=== PATIENT | male | born 1975 | race Caucasian/White ===

== ENCOUNTER 2019-06-20 15:38 | Emergency (ER) | payer BC ==
[~2019-06-20] VITALS: Ht 177.8 cm; Wt 81.6 kg
--- NOTE | 2019-06-20 15:38 | NUR ---
EFRAÍN HAZEL ALS AND PLACED IN BED 2.
[2019-06-20 15:46] VITALS: BP 113/73
--- NOTE | 2019-06-20 15:46 | NUR ---
PT BIBA C/O SEIZURE. PER EMS PT HAD WITNESSED SEIZURE LASTING 1 MIN. NO ORAL TRAUMA, NO HEAD INJURY, AAOX4, DENIES PAIN AT THIS TIME. REPORTS HASN'T TAKEN KEPPRA IN OVER 1 WEEK, ADMITS TO MARIJUANA USE. VSS. ER MD TO SEE PT. MEDHX:SEIZURE, SUBSTANCE ABUSE, BRAIN SURGERY RX:KEPPRA, SUBOXONE
[2019-06-20] MEDS ORDERED: LORazepam 1 MG TAB PO ONE (16:20)
[2019-06-20] MEDS ORDERED: levETIRAcetam 500 MG TAB PO ONE (16:20)
--- NOTE | 2019-06-20 16:38 | NUR ---
LAB AT BEDSIDE
--- NOTE | 2019-06-20 17:01 | NUR ---
PT SLEEPING IN BED, AROUSABLE TO NAME, AAOX4, GCS 15. VSS. PT DENIES PAIN AT THIS TIME.
[2019-06-20 17:02] LABS: BASOPHILS # (AUTO) 0.1 K/uL (0.00-0.22); BASOPHILS % (AUTO) 0.7 % (0.0-2.0); EOSINOPHILS # (AUTO) 0.2 K/uL (0-0.4); EOSINOPHILS % (AUTO) 2.8 % (0.0-4.0); HEMATOCRIT 44.6 % (36-52); HEMOGLOBIN 14.6 g/dL (12.0-18.0); LYMPHOCYTES # (AUTO) 0.9 K/uL (2.0-11.5); LYMPHOCYTES % (AUTO) 10.7 % (20.5-51.1); MEAN CORPUSCULAR HEMOGLOBIN 27 pg (27-31); MEAN CORPUSCULAR HGB CONC 33 g/dL (33-37); MEAN CORPUSCULAR VOLUME 83.3 fL (80-94); MONOCYTES # (AUTO) 0.6 K/uL (0.8-1.0); MONOCYTES % (AUTO) 6.8 % (1.7-9.3); NEUTROPHILS # (AUTO) 6.7 K/uL (1.8-7.7); PLATELET COUNT (AUTO) 285 K/uL (140-450); RED BLOOD CELL COUNT(AUTO) 5.36 MIL/uL (4.20-6.10); WHITE BLOOD COUNT (AUTO) 8.5 K/uL (4.8-10.8)
[2019-06-20 17:17] LABS: ANION GAP 12.5 (8-16); CARBON DIOXIDE 28.2 mmol/L (21-32); CREATININE 0.9 mg/dL (0.7-1.3); POTASSIUM 3.7 mmol/L (3.5-5.1)
[2019-06-20 17:21] LABS: ALBUMIN 2.9 g/dL (3.4-5.0); TOTAL BILIRUBIN 0.3 mg/dL (0.0-1.0)
[2019-06-20 18:02] VITALS: BP 112/67
--- NOTE | 2019-06-20 18:02 | NUR ---
DCR Patient discharged with v/s stable. Written and verbal after care instructions given and explained. Patient alert, oriented and verbalized understanding of instructions. Ambulatory with steady gait. All questions addressed prior to discharge. ID band removed. Patient advised to follow up with PMD. Rx of KEPPRA given. Patient educated on indication of medication including possible reaction and side effects. Opportunity to ask questions provided and answered.
== END 2019-06-20 18:02 | disposition home or self-care (01) ==
LOC: MED 15:38
DX: R56.9 Unspecified convulsions (principal); S81.802A Unspecified open wound, left lower leg, initial encounter; S81.801A Unspecified open wound, right lower leg, initial encounter; F17.210 Nicotine dependence, cigarettes, uncomplicated; Z98.890 Other specified postprocedural states; Z88.1 Allergy status to other antibiotic agents; X58.XXXA Exposure to other specified factors, initial encounter; Y92.89 Other specified places as the place of occurrence of the external cause; Y93.89 Activity, other specified; Y99.8 Other external cause status
CPT/HCPCS: 36415; 80053; 82948; 85025; 99283

== ENCOUNTER 2022-07-22 08:19 | Emergency (ER) | payer BC ==
[~2022-07-22] VITALS: Ht 180.3 cm; Wt 80.4 kg
[2022-07-22 08:23] VITALS: BP 140/93
--- NOTE | 2022-07-22 08:29 | NUR ---
BIB SELF FOR Medication Refill: KEPPRA 100MG X TWICE DAILY. PMH: SEIZURE
[2022-07-22] MEDS ORDERED: LEVE500T9 PO (10:18)
[2022-07-22 10:33] VITALS: BP 152/87
--- NOTE | 2022-07-22 10:33 | NUR ---
Patient discharged with v/s stable. Written and verbal after care instructions given. Patient alert, oriented and verbalized understanding of instructions. Ambulatory with steady gait. All questions addressed prior to discharge. ID band removed. Patient advised to follow up with PMD. Rx of Bubba given. Opportunity to ask questions provided and answered.
--- NOTE | 2022-07-22 10:34 | NUR ---
The patient's care was reviewed and supervised by Liza Conde RN.
== END 2022-07-22 10:33 | disposition home or self-care (01) ==
LOC: MED 08:19
DX: R56.9 Unspecified convulsions (principal); F17.200 Nicotine dependence, unspecified, uncomplicated
CPT/HCPCS: 99281

== ENCOUNTER 2022-08-11 00:44 | Inpatient (IN) | payer BC ==
[~2022-08-11] VITALS: Ht 182.9 cm; Wt 77.1 kg
[~2022-08-11 00:44] MED LIST: LEVE500T9 PO
[2022-08-11 00:50] VITALS: BP 145/95
--- NOTE | 2022-08-11 00:58 | NUR ---
PT TAKEN TO BED 8
--- NOTE | 2022-08-11 01:03 | NUR ---
46 YO M BIB SELF WITH C/C OF 7/10 LEFT LEG PAIN X SATURDAY. PT'S LEG IS SWOLLEN FROM FOOT TO KNEE. +3 PITTING EDEMA. +REDNESS. PT STATES IT APPEARS IF HE USED IV DRUGS, LIKE HE HAS IN PAST. PT DENIES USING IV DRUGS RECENTLY, HAS BEEN CLEAN FOR 5YRS. HX:SEIZURE, HEP C, RX:SUBOXONE ALLERGY:CEFUROXIME
--- NOTE | 2022-08-11 01:04 | NUR ---
Dr. Gonzalez examining patient.
[2022-08-11] MEDS ORDERED: CLINDAMYCIN 900MG/D5W PM 50 ML IV ONE (01:10)
[2022-08-11] MEDS ORDERED: VANCOMYCIN PER PHARMACY MC PRN ×2 (01:10→04:55)
[2022-08-11] MEDS ORDERED: VANCOMYCIN 1GM/DEXT 5% PREMIX 200 ML IV ONE (01:10)
[2022-08-11] MEDS ORDERED: PIPERACILLIN/TAZOBACTAM 4.5 GM in DEXTROSE 5% 100 ML IV ONE (01:10)
--- NOTE | 2022-08-11 01:16 | NUR ---
X-Ray at bedside.
--- NOTE | 2022-08-11 01:18 | NUR ---
LAB AT BEDSIDE
[2022-08-11] MEDS ORDERED: NACL 0.9% 2,000 ML IV ONE (01:20)
[2022-08-11] MEDS ORDERED: KETOROLAC 15 MG/ML VIAL IVP ONE (01:25)
[2022-08-11] MEDS ORDERED: PIPERACILLIN/TAZOBACTAM 4.5 GM VIAL IV ONE (01:31)
[2022-08-11 01:50] LABS: BASOPHILS % (AUTO) 0.2 % (0.0-2.0); EOSINOPHILS # (AUTO) 0.1 K/uL (0-0.4); EOSINOPHILS % (AUTO) 0.8 % (0.0-4.0); HEMATOCRIT 43.5 % (36-52); HEMOGLOBIN 14.1 g/dL (12.0-18.0); LYMPHOCYTES # (AUTO) 1.5 K/uL (2.0-11.5); LYMPHOCYTES % (AUTO) 10.9 % (20.5-51.1); MEAN CORPUSCULAR HEMOGLOBIN 25 pg (27-31); MEAN CORPUSCULAR HGB CONC 32 g/dL (33-37); MEAN CORPUSCULAR VOLUME 77.2 fL (80-94); MONOCYTES % (AUTO) 13.9 % (1.7-9.3); NEUTROPHILS # (AUTO) 10.5 K/uL (1.8-7.7); NEUTROPHILS % (AUTO) 74.2 % (42.2-75.2); PLATELET COUNT (AUTO) 315 K/uL (140-450); RED BLOOD CELL COUNT(AUTO) 5.64 MIL/uL (4.20-6.10); RED CELL DISTRIBUTION WIDTH 18.9 % (11.6-13.7); WHITE BLOOD COUNT (AUTO) 14.1 K/uL (4.8-10.8)
--- NOTE | 2022-08-11 01:55 | NUR ---
PT UNABLE TO URINATE AT THIS TIME, STATES TO GIVE HIM SOME TIME AND HE WILL GIVE URINE
[2022-08-11 02:08] LABS: ALBUMIN 2.5 g/dL (3.4-5.0); ANION GAP 13.2 (8-16); ASPARTATE AMINOTRANSFERASE 122 U/L (15-37); CARBON DIOXIDE 30.3 mmol/L (21-32); CHLORIDE 100 mmol/L (98-107); CREATININE 0.8 mg/dL (0.6-1.3); GFR ARICAN-AMERICAN 135 mL/min (>90); GLUCOSE 88 mg/dL (74-106); POTASSIUM 3.5 mmol/L (3.5-5.1); SODIUM SERUM 140 mmol/L (136-145); TOTAL BILIRUBIN 0.7 mg/dL (0.0-1.0); UREA NITROGEN, BLOOD 16 mg/dL (7-18)
[2022-08-11] MEDS ORDERED: VANCOMYCIN 1,000 MG VIAL ONE (02:37)
--- NOTE | 2022-08-11 03:14 | NUR ---
PT APPEARS TO BE RESTING WITH EQUAL RISE AND FALL OF CHEST WALL. ALL NEEDS MET AT THIS TIME. BED LOCKED IN LOWEST POSITION, SIDE RAILS X2 FOR SAFETY.
--- NOTE | 2022-08-11 03:19 | NUR ---
COVID SWAB COLLECTED AND SENT TO LAB
--- NOTE | 2022-08-11 03:22 | NUR ---
Ultrasound at bedside.
--- NOTE | 2022-08-11 03:51 | NUR ---
Yasmin salas in ED - 08/11/22 at 0451 by MNDOMPM SZ PADS APPLIED TO BEDSIDE RAILS X2
[2022-08-11] MEDS ORDERED: BUPR1FIL SL (04:43)
[2022-08-11] MEDS ORDERED: NACL 0.9% 1,000 ML IV SCH (04:55)
[2022-08-11 06:13] VITALS: BP 137/88
[2022-08-11 06:13] LABS: APPEARANCE,URINE CLEAR (CLEAR); BILIRUBIN,URINE 1+ (NEGATIVE); BLOOD, URINE NEGATIVE (NEGATIVE); COLOR,URINE YELLOW (YELLOW); LEUKOCYTE ESTERASE ,URINE NEGATIVE (NEGATIVE); NITRITE, URINE NEGATIVE (NEGATIVE); UGLUCOSE NEGATIVE (NEGATIVE)
[2022-08-11 06:22] LABS: RBC,URINE NONE SEEN /HPF (0-5); WBC,URINE 0-5 /HPF (0-5)
--- NOTE | 2022-08-11 07:16 | NUR ---
Received report from PILY Garcia. Assumed care at this time.
[2022-08-11] MEDS ORDERED: VANCOMYCIN 500 MG in DEXTROSE 5% 100 ML IV SCH (08:00)
[2022-08-11] MEDS ORDERED: VANCOMYCIN 500 MG VIAL ONE (08:05)
--- NOTE | 2022-08-11 08:37 | NUR ---
IV removed, catheter intact and site benign. Applied folded 4x4 gauze and tape to stop bleeding.
--- NOTE | 2022-08-11 08:39 | NUR ---
Pt stated "I need to leave, I have a lot of things to do." Pt made aware admitting MD, Dr. Contreras, is not available to explain the dangers and risks of leaving against medical advice. Pt acknowledge understanding and proceeded to gather his things to leave.
[2022-08-11] MEDS ORDERED: CLINDAMYCIN 900MG/D5W PM 50 ML IV SCH (09:00)
[2022-08-11] MEDS ORDERED: VANCOMYCIN 1,500 MG in DEXTROSE 5% 500 ML IV SCH (15:00)
== END 2022-08-11 08:39 | disposition left against medical advice (07) | DRG 603 ==
LOC: MED 00:44 → MTU 05:07
PROVIDERS: ADMIT Family Medicine; ATTEND Family Medicine
DX: L03.116 Cellulitis of left lower limb (principal); G40.909 Epilepsy, unspecified, not intractable, without status epilepticus; R74.01 Elevation of levels of liver transaminase levels; Z20.822 Contact with and (suspected) exposure to COVID-19; Z88.8 Allergy status to other drugs, medicaments and biological substances; Z53.29 Procedure and treatment not carried out because of patient's decision for other reasons
CPT/HCPCS: 36415; 71045; 73590; 73600; 73620; 73701; 80053; 81001; 83605; 84484; 85025; 85651; 86140; 87040; 87086; 93971; 96365; 96367; 96375; 99291; J1885; J2543; J3370; J7030; J7060; Q0092; Q9967

== ENCOUNTER 2022-08-13 23:03 | Inpatient (IN) | payer BC ==
[~2022-08-13] VITALS: Ht 182.9 cm; Wt 79.4 kg
[~2022-08-13 23:03] MED LIST changes: +BUPR1FIL SL
[2022-08-13 23:14] VITALS: BP 130/95
--- NOTE | 2022-08-13 23:22 | NUR ---
TO LOBBY FOLLOWING TRIAGE
--- NOTE | 2022-08-14 01:09 | NUR ---
PT TAKEN TO BED 11
--- NOTE | 2022-08-14 01:10 | NUR ---
Dr. Santos examining patient.
[2022-08-14] MEDS ORDERED: KETOROLAC 15 MG/ML VIAL IVP ONE (01:20)
[2022-08-14] MEDS ORDERED: PIPERACILLIN/TAZOBACTAM 3.375 GM in DEXTROSE 5% 50 ML IV ONE (01:20)
[2022-08-14] MEDS ORDERED: NACL 0.9% 1,000 ML IV ONE ×2 (01:20→01:35)
[2022-08-14] MEDS ORDERED: VANCOMYCIN 1,000 MG in DEXTROSE 5% 250 ML IV ONE (01:20)
[2022-08-14 02:18] LABS: BASOPHILS % (AUTO) 0.5 % (0.0-2.0); EOSINOPHILS # (AUTO) 0.1 K/uL (0-0.4); EOSINOPHILS % (AUTO) 1.5 % (0.0-4.0); HEMOGLOBIN 13.1 g/dL (12.0-18.0); LYMPHOCYTES # (AUTO) 1.7 K/uL (2.0-11.5); LYMPHOCYTES % (AUTO) 17.8 % (20.5-51.1); MEAN CORPUSCULAR HEMOGLOBIN 26 pg (27-31); MEAN CORPUSCULAR HGB CONC 34 g/dL (33-37); MEAN CORPUSCULAR VOLUME 76.2 fL (80-94); MONOCYTES % (AUTO) 10.9 % (1.7-9.3); NEUTROPHILS # (AUTO) 6.6 K/uL (1.8-7.7); NEUTROPHILS % (AUTO) 69.3 % (42.2-75.2); PLATELET COUNT (AUTO) 407 K/uL (140-450); RED BLOOD CELL COUNT(AUTO) 5.12 MIL/uL (4.20-6.10); RED CELL DISTRIBUTION WIDTH 18.1 % (11.6-13.7); WHITE BLOOD COUNT (AUTO) 9.5 K/uL (4.8-10.8)
[2022-08-14 02:36] LABS: ALBUMIN 2.1 g/dL (3.4-5.0); ANION GAP 8.8 (8-16); CREATININE 0.9 mg/dL (0.6-1.3); POTASSIUM 3.8 mmol/L (3.5-5.1); TOTAL BILIRUBIN 0.4 mg/dL (0.0-1.0)
[2022-08-14] MEDS ORDERED: ATI.5 PO (03:18)
[2022-08-14] MEDS ORDERED: PIPERACILLIN/TAZOBACTAM 3.375 GM VIAL IV ONE ×3 (03:54→18:02)
[2022-08-14] MEDS ORDERED: VANCOMYCIN 1,000 MG VIAL ONE ×3 (04:17→20:59)
--- NOTE | 2022-08-14 07:53 | NUR ---
TRANSFERRED TO ER BED 5
[2022-08-14] MEDS ORDERED: HYDROcodone/APAP 7.5/325 MG 1 TAB PO PRN (09:10)
[2022-08-14] MEDS ORDERED: guaiFENesin DM 200/20 MG-10 ML 10 ML UDC PO PRN (09:10)
[2022-08-14] MEDS ORDERED: POTASSIUM CHLORIDE 10 MEQ TABER PO PRN (09:10)
[2022-08-14] MEDS ORDERED: ACETAMINOPHEN 325 MG TAB PO PRN (09:10)
[2022-08-14] MEDS ORDERED: ZOLPIDEM 5 MG TAB PO PRN (09:10)
[2022-08-14] MEDS ORDERED: ONDANSETRON 4 MG/2 ML VIAL IM/IVP PRN (09:10)
[2022-08-14] MEDS ORDERED: DOCUSATE SODIUM 100 MG GELCAP PO PRN (09:10)
[2022-08-14] MEDS ORDERED: VANCOMYCIN PER PHARMACY MC PRN (09:15)
[2022-08-14] MEDS: NACL 0.9% 1,000 ML IV SCH ×2 (09:57→17:34)
--- NOTE | 2022-08-14 10:00 | NUR ---
MD DAVILA AT BEDSIDE FOR EVALUATION
--- NOTE | 2022-08-14 10:04 | NUR ---
VERBAL ORDER RECEIVED FROM MD DAVILA. ORDERS VERBALIZED BACK, CONFIRMED AND CARRIED OUT KEPPRA 1000MG PO BID - START NOW
--- NOTE | 2022-08-14 10:04 | NUR ---
Yasmin salas in ED - 08/14/22 at 1004 by PHSEP VERBAL ORDER RECEIVED FROM MD LIN. MENDEZRA 1000MG PO BID - START NOW
[2022-08-14 10:08] LABS: PROTHROMBIN TIME 10.7 secs (10.8-13.4)
[2022-08-14] MEDS: PIPERACILLIN/TAZOBACTAM 3.375 GM in DEXTROSE 5% 50 ML IV SCH ×2 (10:16→18:07)
[2022-08-14 10:20] LABS: AMYLASE 46 U/L (25-115); CHOL/HDL RATIO 3.1 (1-4.5); FREE T4 (FREE THYROXINE) 1.28 ng/dL (0.76-1.46); HDL CHOLESTEROL 23 mg/dL (40-60); LDL (CALC) 32 mg/dL (60-100); LIPASE 122 U/L (73-393); MAGNESIUM 1.7 mg/dL (1.8-2.4); PHOSPHORUS 4.3 mg/dL (2.5-4.9); THYROID STIMULATING HORMONE 4.44 uIU/mL (0.34-3.74); TRIGLYCERIDES 81 mg/dL (30-150)
[2022-08-14] MEDS: levETIRAcetam 500 MG TAB PO SCH ×2 (10:23→21:23)
--- NOTE | 2022-08-14 12:08 | NUR ---
pt provided w/ lunch. "not right now", left at bedside
[2022-08-14] MEDS: VANCOMYCIN 1,000 MG in DEXTROSE 5% 250 ML IV SCH ×2 (13:30→21:22)
--- NOTE | 2022-08-14 17:00 | NUR ---
750ML cloudy yellow urine collected and emptied from bedside urinal
--- NOTE | 2022-08-14 17:38 | NUR ---
pt requesting nicotine patch. md DAVILA made aware
--- NOTE | 2022-08-14 18:00 | NUR ---
pt provided w/ dinner. pt awake and eating in bed.
[2022-08-14] MEDS ORDERED: NICOTINE TRANSD SYS 14 MG/24 HR PATCH TD SCH (18:25)
[2022-08-14] MEDS ORDERED: NICOTINE TRANSD SYS 14 MG/24 HR PATCH TD PRN (18:30)
--- NOTE | 2022-08-14 19:34 | NUR ---
REPORT GIVEN TO LELA ANTHONY. TRANSFER OF CARE AT THIS TIME
[2022-08-14] MEDS: NICOTINE TRANSD SYS 14 MG/24 HR PATCH TD SCH (19:39)
--- NOTE | 2022-08-14 19:47 | NUR ---
46YO MALE PT ADMITED FOR LL CELLULITIS. REPORTS INCREASED PAIN AND REDDENED SWELLING X1 WEEK. PT RECENTLY ADMITED AND LEFT AMA "HAD PLANS". STATES ONGOING INTERMITTENT SWELLING IN L LEG ,DUE TO HX OF IV DRUG USE ,THAT WOULD SELF RELIEF. LEG AND FOOT PRESENTS WITH REDDENED , HOT TO TOUCH SWELLING, CAP REFILL <3 THROUGHOUT. NO ACTIVE DRAINAGE NOTED. PT AAOX4, NO VISIBLE DISTRESS. BED AT LOWEST POSITION, BED RAILS UPX2. SEIZURE PADS IN PLACE. HX: SEIZURE ALLERGIES: CEFUROXIME
--- NOTE | 2022-08-14 20:04 | NUR ---
Patient will be admitted to care of DR DAVILA. Admited to [facility]. Will go to room 104. Belongings list completed. Report to ISMAEL NASCIMENTO.
[2022-08-14 20:10] VITALS: BP 152/100
--- NOTE | 2022-08-14 20:10 | NUR ---
RECEIVED REPORT FROM ER NURSE CHYNA FOR CONTINUITY OF CARE. PATIENT IS A&O X4. PATIENT IS ON ROOM AIR, BREATHING IS NORMAL WITH SYMMETRICAL RISE AND FALL OF CHEST. PATIENT'S IV IS A 20G RAC, RUNNING NS 125. PATIENT IS ABLE TO AMBULATE INDEPENDENTLY FROM GURNEY TO BED, BUT STATES HIS LEFT FOOT IS A LITTLE WEAK. PATIENT'S LEFT FOOT IS PINK AND IS OPEN TO AIR. ADMISSION VITALS WERE: BP 152/100, HR 77, O2 97, RR 18, TEMP 98.6. PATIENT IS SITTING UP IN BED; BED IS IN LOWEST POSITION, WHEELS LOCKED, CALL LIGHT IN PLACE. WILL CONTINUE TO OBSERVE PATIENT.
--- NOTE | 2022-08-14 21:06 | NUR ---
The patient's care was reviewed and supervised by Antonella Beaver RN.
--- NOTE | 2022-08-14 22:45 | NUR ---
ADMINISTERED VANCOMYCIN IVPB TO PATIENT. IVPB WAS STARTED SUCCESSFULLY WITHOUT ANY ISSUES. PATIENT REQUESTED SUBOXONE 2MG BECAUSE IT'S WHAT HE TAKES DAILY AT HOME. MESSAGED DR. DAVILA STATING THAT THE PATIENT IS REQUESTING THE MEDICATION BECAUSE HE'S BEEN TAKING IT FOR 6 YEARS (HAVING ORIGINALLY STARTED AT 12MG, AND IS NOW TAKING 6MG). DOCTOR RESPONDED STATING, "OKAY THAT'S FAIR...GO AHEAD AND RESUME". THE ORDER WAS PUT IN BY CHARGE NURSE TIRSO. I INFORMED THE PATIENT OF THE DOCTOR'S ORDER, BUT INFORMED HIM THAT WE CURRENTLY DON'T HAVE THE MEDICATION ON HAND. PATIENT REQUESTED TO GO TO HIS CAR AND RETRIEVE THE SUBOXONE HE HAD. PATIENT WAS ESCORTED ALONG WITH SECURITY TO HIS CAR. PATIENT ONLY HAD ONE SUBOXONE STRIP. PATIENT TOOK HALF A STRIP, LEAVING OTHER HALF IN WRAPPER. VERIFIED WRAPPER, MEDICATION WAS SUBOXONE 2MG STRIP. PATIENT WAS BROUGHT BACK TO ROOM AND PLACED BACK ON IV, AND GOWN WAS PUT BACK ON. PATIENT'S BREATHING IS NORMAL WITH SYMMETRICAL RISE AND FALL OF CHEST. WILL CONTINUE TO OBSERVE PATIENT.
[2022-08-15] MEDS ORDERED: PIPERACILLIN/TAZOBACTAM 3.375 GM VIAL IV ONE ×2 (00:24→06:53)
[2022-08-15] MEDS: PIPERACILLIN/TAZOBACTAM 3.375 GM in DEXTROSE 5% 50 ML IV SCH ×2 (00:27→07:15)
--- NOTE | 2022-08-15 01:00 | NUR ---
ADMINISTERED ZOSYN IVPB TO PATIENT. IVPB WAS STARTED SUCCESSFULLY. PATIENT IS SLEEPING, LYING IN SEMI-FOWLERS POSITION. BREATHING IS NORMAL WITH SYMMETRICAL RISE AND FALL OF CHEST. WILL CONTINUE TO OBSERVE PATIENT.
[2022-08-15] MEDS: NACL 0.9% 1,000 ML IV SCH ×2 (01:10→05:11)
--- NOTE | 2022-08-15 03:30 | NUR ---
LOOKED IN ON PATIENT. PATIENT WAS SLEEPING. BREATHING WAS NORMAL WITH SYMMETRICAL RISE AND FALL OF CHEST. IV WAS RUNNING NS 125. WILL CONTINUE TO OBSERVE PATIENT.
[2022-08-15 04:00] VITALS: BP 136/88
[2022-08-15] MEDS ORDERED: VANCOMYCIN 1,000 MG VIAL ONE (05:23)
[2022-08-15] MEDS: VANCOMYCIN 1,000 MG in DEXTROSE 5% 250 ML IV SCH (05:31)
--- NOTE | 2022-08-15 06:00 | NUR ---
PATIENT'S VANCO IVPB WAS HUNG. IVPB STARTED SUCCESSFULLY WITHOUT ANY ISSUES. APPLIED DRESSING TO PATIENT'S FOOT. PATIENT TOLERATED WELL. BREATHING IS NORMAL WITH SYMMETRICAL RISE AND FALL OF CHEST. WILL CONTINUE TO OBSERVE PATIENT.
--- NOTE | 2022-08-15 07:30 | NUR ---
ASSUMED CONTINUITY OF CARE. INITIAL ASSESSMENT DONE. KEEP COMFORTABLE ON BED. EXPLAINED DIAGNOSIS, PLAN OF CARE, PAIN MANAGEMENT TEACHING, SMOKING POLICY, USE OF CALL LIGHT/BED/TV/BATHROOM. VERBALIZED UNDERSTANDING. CALL LIGHT WITHIN REACH.
--- NOTE | 2022-08-15 07:33 | NUR ---
ENDORSED TO DAY SHIFT NURSE ALEXANDER FOR CONTINUITY OF CARE. PATIENT IS STABLE.
[2022-08-15 08:00] VITALS: BP 138/92
[2022-08-15 08:08] LABS: T4 (THYROXINE) 10.3 ug/dL (4.5-12.0)
[2022-08-15 08:10] LABS: BASOPHILS % (AUTO) 0.5 % (0.0-2.0); EOSINOPHILS # (AUTO) 0.2 K/uL (0-0.4); EOSINOPHILS % (AUTO) 1.8 % (0.0-4.0); HEMATOCRIT 38.8 % (36-52); HEMOGLOBIN 12.7 g/dL (12.0-18.0); LYMPHOCYTES % (AUTO) 19.3 % (20.5-51.1); MEAN CORPUSCULAR HEMOGLOBIN 25 pg (27-31); MEAN CORPUSCULAR HGB CONC 33 g/dL (33-37); MEAN CORPUSCULAR VOLUME 76.1 fL (80-94); MONOCYTES % (AUTO) 9.8 % (1.7-9.3); NEUTROPHILS # (AUTO) 6.9 K/uL (1.8-7.7); NEUTROPHILS % (AUTO) 68.6 % (42.2-75.2); PLATELET COUNT (AUTO) 442 K/uL (140-450); RED BLOOD CELL COUNT(AUTO) 5.09 MIL/uL (4.20-6.10); RED CELL DISTRIBUTION WIDTH 18.5 % (11.6-13.7); WHITE BLOOD COUNT (AUTO) 10.1 K/uL (4.8-10.8)
[2022-08-15 08:24] LABS: ANION GAP 11.3 (8-16); CARBON DIOXIDE 28.8 mmol/L (21-32); CREATININE 0.8 mg/dL (0.6-1.3); POTASSIUM 4.1 mmol/L (3.5-5.1)
[2022-08-15] MEDS ORDERED: [UNRECOGNIZED DRUG - OTHER] SL SCH (09:00)
[2022-08-15] MEDS ORDERED: NALOXONE HCL SL SCH (09:00)
[2022-08-15] MEDS ORDERED: BUPRENORPHINE HCL SL SCH (09:00)
[2022-08-15] MEDS ORDERED: PANTOPRAZOLE 40 MG TABEC PO SCH (09:00)
--- NOTE | 2022-08-15 09:08 | NUR ---
DR. DAVILA CAME AND INFORMED OF PT. MAG 1.7. GOT AN ORDER, READ BACK AND VERIFIED. INFORMED CHARGE NURSE DAYAN ARANA.
[2022-08-15] MEDS: NICOTINE TRANSD SYS 14 MG/24 HR PATCH TD SCH (09:18)
[2022-08-15] MEDS: levETIRAcetam 500 MG TAB PO SCH (09:18)
[2022-08-15] MEDS ORDERED: MAGNESIUM OXIDE 400 MG TAB PO SCH (09:27)
--- NOTE | 2022-08-15 10:01 | NUR ---
INFORMED DR. DAVILA THAT PT. WANTED TO GO AMA. INFORMED CHARGE NURSE DAYAN ARANA.
--- NOTE | 2022-08-15 10:45 | NUR ---
WOUND CONSULT NOT DONE. PT. NOT IN ROOM PER PRIMARY NURSE ALEXANDER KENNY. AMA.
[2022-08-15 10:56] LABS: BARBITURATE, URINE NEGATIVE ng/ml (NEG <=200)
[2022-08-15 10:57] LABS: BENZODIAZEPINE, URINE NEGATIVE ng/mL (NEG <=200); CANNABINOID, URINE POSITIVE ng/mL (NEG <=50); COCAINE, URINE NEGATIVE ng/mL (NEG <=300); OPIATE, URINE NEGATIVE ng/mL (NEG <=2000); PHENCYCLIDINE SCREEN,URINE NEGATIVE ng/mL (NEG <=25)
[2022-08-15 15:09] LABS: APPEARANCE,URINE CLEAR (CLEAR); BILIRUBIN,URINE NEGATIVE (NEGATIVE); BLOOD, URINE NEGATIVE (NEGATIVE); COLOR,URINE YELLOW (YELLOW); LEUKOCYTE ESTERASE ,URINE NEGATIVE (NEGATIVE); NITRITE, URINE NEGATIVE (NEGATIVE); UGLUCOSE NEGATIVE (NEGATIVE)
== END 2022-08-15 10:05 | disposition left against medical advice (07) | DRG 871 ==
LOC: MED 23:03 → MTU 08-14 01:36
PROVIDERS: ADMIT Family Medicine; ATTEND Family Medicine
DX: A41.9 Sepsis, unspecified organism (principal); E43 Unspecified severe protein-calorie malnutrition; L03.116 Cellulitis of left lower limb; E78.5 Hyperlipidemia, unspecified; E83.42 Hypomagnesemia; Z20.822 Contact with and (suspected) exposure to COVID-19; Z53.29 Procedure and treatment not carried out because of patient's decision for other reasons; G40.909 Epilepsy, unspecified, not intractable, without status epilepticus; Z86.61 Personal history of infections of the central nervous system; Z68.23 Body mass index [BMI] 23.0-23.9, adult; Z88.8 Allergy status to other drugs, medicaments and biological substances
CPT/HCPCS: 36415; 71045; 80048; 80053; 80202; 80305; 81003; 82150; 83036; 83605; 83690; 83735; 83880; 84100; 84436; 84439; 84443; 84479; 84484; 85025; 85610; 85651; 85730; 86140; 87040; 87070; 87081; 93005; 96365; 96366; 99285; J1885; J2543; J3370; J7060; Q0092